=== PATIENT | female | born 1935 | race Caucasian/White ===

== ENCOUNTER 2021-05-22 12:52 | Emergency (ER) | payer MEDICARE, OTHER ==
[2021-05-22 13:25] LABS: HEMOGLOBIN 13.1 gm/dl (12.3-15.3); RED BLOOD COUNT 4.57 M/UL (4.00-5.10); WHITE BLOOD COUNT 4.5 K/UL (4.5-11.0)
== END 2021-05-22 15:39 | disposition home or self-care (01) ==
LOC: ER1 12:52
PROVIDERS: Physician Assistant
DX: U07.1 COVID-19 (principal); I11.9 Hypertensive heart disease without heart failure; Z95.1 Presence of aortocoronary bypass graft; Z88.8 Allergy status to other drugs, medicaments and biological substances
CPT/HCPCS: 80053; 82550; 82553; 83874; 84484; 85025; 93005; 99283; U0002

== ENCOUNTER → 2021-05-25 | Outpatient (CLI) | payer MEDICARE ==
[~2021-05-25] VITALS: Ht 160 cm; Wt 70.3 kg
== END ==
LOC: EROP 14:08
DX: U07.1 COVID-19 (principal); Z23 Encounter for immunization; I25.10 Atherosclerotic heart disease of native coronary artery without angina pectoris; I10 Essential (primary) hypertension; Z88.8 Allergy status to other drugs, medicaments and biological substances
CPT/HCPCS: M0247; Q0247